=== PATIENT | male | born 1975 | race Caucasian/White ===

== ENCOUNTER 2021-03-20 07:09 | Emergency (ER) | payer BC ==
[~2021-03-20] VITALS: Ht 180.3 cm; Wt 84.1 kg
[2021-03-20 07:13] VITALS: BP 187/102
[2021-03-20] MEDS ORDERED: DOXYCYCLINE 100MG CAPSULE PO STA (08:02)
[2021-03-20] MEDS ORDERED: DOXY-11 PO (08:04)
== END 2021-03-20 08:30 | disposition home or self-care (01) ==
LOC: ER 07:10
DX: L03.211 Cellulitis of face (principal)
CPT/HCPCS: 99283

== ENCOUNTER 2022-01-18 17:33 | Emergency (ER) | payer BC ==
[~2022-01-18] VITALS: Ht 180.3 cm; Wt 83.2 kg
[2022-01-18] MEDS ORDERED: bacitracin 15gm ointment TP ONE (19:10)
[2022-01-18] MEDS ORDERED: LIDOcaine 1% w/EPI 1:100,000 30ml vial (MDV) IJ ONE (19:10)
[2022-01-18 20:29] VITALS: BP 124/78
== END 2022-01-18 20:32 | disposition home or self-care (01) ==
LOC: ER 17:34
DX: S61.411A Laceration without foreign body of right hand, initial encounter (principal); Z72.89 Other problems related to lifestyle; W11.XXXA Fall on and from ladder, initial encounter; Y93.89 Activity, other specified; Y92.89 Other specified places as the place of occurrence of the external cause; Y99.8 Other external cause status
CPT/HCPCS: 12001; 73130; 99283; J3490; A6449